=== PATIENT | female | born 1940 | race Asian ===

== ENCOUNTER 2017-10-16 14:12 | Inpatient (IN) | payer MEDICAID, MEDICARE ==
[~2017-10-16] VITALS: Ht 160 cm; Wt 49.0 kg
[2017-10-16 14:19] VITALS: BP_SYST 144
--- NOTE | 2017-10-16 14:26 | NUR ---
Pt placed to ER bed 08. Report given to EVIE Clayton.
[2017-10-16] MEDS ORDERED: NACL 0.9% 1,000 ML IV ONE (14:45)
--- NOTE | 2017-10-16 15:00 | NUR ---
Dr. Constantino at bedside for assess/eval
--- NOTE | 2017-10-16 15:05 | NUR ---
76 year old female presented to ED with complaints of Abdominal pain x 1 month, with nausea and diarrhea x 2 days.
--- NOTE | 2017-10-16 15:10 | NUR ---
22g LAC by EVIE Turner; good blood return noted; blood drawn for lab and sent; IV hydration started as ordered Addendum: 10/16/17 at 1524 by SDEDPM BC x 2 drawn as well as lactic acid
--- NOTE | 2017-10-16 15:15 | NUR ---
EKG performed at bedside; pt zahra
[2017-10-16 15:17] LABS: BASOPHILS % (AUTO) 0.6 % (0.0-2.0); EOSINOPHILS % (AUTO) 0.2 % (0.0-4.0); HEMATOCRIT 36.3 % (36-48); HEMOGLOBIN 12.5 g/dL (12.0-16.0); LYMPHOCYTES # (AUTO) 0.9 K/uL (1.0-5.5); MEAN CORPUSCULAR HEMOGLOBIN 31 pg (27-31); MEAN CORPUSCULAR HGB CONC 35 % (32-36); MEAN CORPUSCULAR VOLUME 89 fL (79.0-98.0); MONOCYTES # (AUTO) 0.3 K/uL (0.0-1.0); MONOCYTES % (AUTO) 9.1 % (1.7-9.3); NEUTROPHILS # (AUTO) 2.3 K/uL (1.8-7.7); NEUTROPHILS % (AUTO) 65.1 % (40.0-70.0); PLATELET COUNT (AUTO) 270 K/uL (130-430); RED BLOOD CELL COUNT(AUTO) 4.06 MIL/uL (4.2-6.2); RED CELL DISTRIBUTION WIDTH 11.7 % (9.0-15.0); WHITE BLOOD COUNT (AUTO) 3.5 K/uL (4.8-10.8)
--- NOTE | 2017-10-16 15:19 | NUR ---
CXR performed at bedside; pt zahra
[2017-10-16 15:23] LABS: ANION GAP 8 (5-15); CALCIUM 9.1 mg/dL (8.4-11.0); CHLORIDE 90 mmol/L (98-107); CREATININE 0.81 mg/dL (0.55-1.30); GLUCOSE 103 mg/dL (70-99); POTASSIUM 3.4 mmol/L (3.5-5.1); SODIUM SERUM 123 mmol/L (136-145); UREA NITROGEN, BLOOD 11 mg/dL (8-21)
[2017-10-16 15:26] LABS: PROTHROMBIN TIME 9.9 SECS (9.5-12.5)
--- NOTE | 2017-10-16 15:30 | NUR ---
Urine sample collected and sent to lab as ordered
[2017-10-16 15:39] LABS: ALANINE AMINOTRANSFERASE 22 U/L (12-78); ALBUMIN 3.7 g/dL (3.4-4.8); ASPARTATE AMINOTRANSFERASE 28 U/L (10-37); TOTAL BILIRUBIN 0.7 mg/dL (0.0-1.0)
[2017-10-16 15:52] LABS: BILIRUBIN,URINE NEGATIVE (NEGATIVE); BLOOD, URINE NEGATIVE (NEGATIVE); CLARITY/URINE CLEAR (CLEAR); COLOR,URINE YELLOW (YELLOW); GLUCOSE,URINE NEGATIVE (NEGATIVE); KETONES,URINE TRACE (NEGATIVE); LEUKOCYTE ESTERASE ,URINE TRACE (NEGATIVE); NITRITE, URINE NEGATIVE (NEGATIVE); PH,URINE 7.5 (5.0-8.0); PROTEIN URINE NEGATIVE (NEGATIVE); UROBILINOGEN,URINE 0.2 (0.2-1.0)
[2017-10-16 15:56] LABS: BACTERIA,URINE FEW /HPF (None Seen); RBC,URINE 0-3 /HPF (0-3); WBC,URINE 0-3 /HPF (0-3)
[2017-10-16] MEDS ORDERED: LORazepam 2 MG/ML VIAL (FOR ER USE) IVP ONE (16:00)
--- NOTE | 2017-10-16 16:09 | NUR ---
pt/family reports feeling anxious wtih shortness of breath; made aware; placed pt on 2L O2 via NC; ordered to give Ativan 1mg IVP; VSS BP 135/75 P81 R 20 O2sat 100%; will reassess and continue to monitor
--- NOTE | 2017-10-16 16:15 | NUR ---
pt requested bedpan; offered and will continue to monitor
--- NOTE | 2017-10-16 16:18 | NUR ---
pt reports feeling better; repeat BP 138/76 P79 R16 O2sat 100%
--- NOTE | 2017-10-16 16:40 | NUR ---
pt off unit via gurney to Radiology in stable condition
--- NOTE | 2017-10-16 16:51 | NUR ---
pt returned to unit via gurney from Radiology in stable condition
[2017-10-16] MEDS ORDERED: AMLO2.5T2 PO (16:53)
[2017-10-16] MEDS ORDERED: ATEN50TA PO (16:53)
[2017-10-16] MEDS ORDERED: LISI40TA4 PO (16:53)
--- NOTE | 2017-10-16 16:54 | NUR ---
medication reconciliation and pt belongings completed with family
--- NOTE | 2017-10-16 16:58 | NUR ---
Lactic #2 being drawn at bedside; pt zahra
--- NOTE | 2017-10-16 17:09 | NUR ---
ADMISSION NOTE Received patient from ER via tameka, received report from JUNE RN. Patient admitted with diagnosis of HYPONATREMIA. Patient oriented to hospital routine, call light, toileting and safety-patient verbalized understanding. Addendum: 10/16/17 at 1749 by Marta Teixeira RN Dietary department informed patient is vegetarian, lactose intolerance.
--- NOTE | 2017-10-16 17:15 | NUR ---
Patient will be admitted to care of Dr. Gamino. Admitted to Tele unit. Will go to room 117A . Belongings list completed and medication reconcilliation completed with family. Summary report printed. Report given at bedside to EVIE Lozano; family at bedside.
[2017-10-16 17:23] VITALS: BP_SYST 135
--- NOTE | 2017-10-16 17:30 | NUR ---
INITIAL NOTES: Initial assessment done. Son at bedside interpreted in cantonese and understands the instructions. Call light with in reach. Bed locked at lowest position. Bed alarm on. Continue to monitor.
[2017-10-16 17:33] VITALS: BP_SYST 135
--- NOTE | 2017-10-16 17:33 | NUR ---
GI consult called: for Dr. Jha (Bland rat poisoner), regarding acute colitis, ordered by Dr. Lynn, spoke with Sepideh
[2017-10-16] MEDS: KCL 20 mEq in D5NS 1000 mL 1,000 ML IV SCH (17:35)
[2017-10-16] MEDS ORDERED: MORPHINE 2 MG/ML INJ. SYRINGE IVP PRN (17:45)
[2017-10-16] MEDS ORDERED: AMOX500C2 PO (17:56)
--- NOTE | 2017-10-16 18:33 | NUR ---
CLOSING NOTES: STABLE. SON AT THE BEDSIDE. DINNER SERVED,VEGAN,LACTOSE INTOLERANCE. CALL LIGHT WITH IN REACH. BED LOCKED AT LOWEST POSITION. BED ALARM ON.
--- NOTE | 2017-10-16 19:30 | NUR ---
PM ASSESSMENT REPORT RECEIVED FROM AM RN. PT RECEIVED IN BED WITH EYES OPEN, AAOX4. PT STATES SHE SPEAKS ONLY LITTLE ICELANDIC BUT IS ABLE TO VERBALIZE NEEDS. PT ON RA. SR ON MONITOR. LAC 22G INFUSING D5 1/2 NS WITH 20 MEQ KCL @ 75 CC/HR. VSS, NO S/S OF DISTRESS NOTED. PT DENIES ANY PAIN AT THIS TIME. HOB ELEVATED, BED IN LOWEST POSITION, CALL LIGHT IN REACH. WILL CONTINUE TO MONITOR.
[2017-10-16 20:00] VITALS: BP_SYST 133
[2017-10-16] MEDS ORDERED: metroNIDAZOLE 500 mg/NS 200 ML IV ONE (21:36)
[2017-10-16] MEDS: metroNIDAZOLE 500 mg/NS 100 ML IV SCH (21:48)
[2017-10-16] MEDS: ENOXAPARIN SODIUM 40 MG/0.4 ML SYRINGE SUBCUT SCH (21:50)
--- NOTE | 2017-10-16 22:00 | NUR ---
RN ROUNDS PT RESTING COMFORTABLY IN BED WITH EYES OPEN. FAMILY AT BEDSIDE AND ALL QUESTIONS AND CONCERNS ANSWERED. BREATHING IS EVEN AND UNLABORED ON RA. NO S/S OF DISTRESS NOTED. PT DENIES ANY PAIN AT THIS TIME. NO OTHER NEEDS VERBALIZED. WILL CONTINUE TO MONITOR PT.
--- NOTE | 2017-10-16 22:03 | NUR ---
BLOOD PRESSURE MEDICATIONS PATIENT'S SON, TRANSLATED AND DISCUSSED THE DOSAGE THAT THE PATIENT IS HAVING FOR HER HOME MEDICATIONS AND CONFIRMED THAT THE PATIENT IS TAKING 2.5MG AMLODIPINE PO DAILY, AND 25MG ATENOLOL PO DAILY. NOTED, AND WILL MAKE THE MD AWARE.
--- NOTE | 2017-10-16 22:44 | NUR ---
PERSONAL BELONGINGS ADJUSTMENT DONE PATIENT'S FAMILY BROUGHT TABLET AND WATER AEROBICS INSTRUCTOR FOR THE PATIENT, NOTED ON THE PERSONAL BELONGINGS ADJUSTMENT.
--- NOTE | 2017-10-17 00:10 | NUR ---
RN ROUNDS PT RESTING COMFORTABLY IN BED, BREATHING IS EVEN AND UNLABORED ON RA. NO S/S OF DISTRESS NOTED. PT EDUCATED ON BECOMING NPO AT 0000 DUE TO PT HAVING AN ABD US TOMORROW MORNING. PT VERBALIZES UNDERSTANDING. WILL CONTINUE TO MONITOR PT.
[2017-10-17 00:30] VITALS: BP_SYST 137
--- NOTE | 2017-10-17 02:11 | NUR ---
RN ROUNDS PT RESTING COMFORTABLY IN BED WITH EYES CLOSED. NO S/S OF DISTRESS NOTED. BREATHING IS EVEN AND UNLABORED ON RA. WILL CONTINUE TO MONITOR PT.
--- NOTE | 2017-10-17 04:00 | NUR ---
RN ROUNDS PT RESTING COMFORTABLY IN BED WITH EYES CLOSED. BREATHING IS EVEN AND UNLABORED ON RA. NO S/S OF DISTRESS NOTED. WILL CONTINUE TO MONITOR PT.
[2017-10-17] MEDS: KCL 20 mEq in D5NS 1000 mL 1,000 ML IV SCH ×2 (05:37→21:02)
[2017-10-17] MEDS: metroNIDAZOLE 500 mg/NS 100 ML IV SCH ×3 (05:40→21:02)
--- NOTE | 2017-10-17 06:32 | NUR ---
CLOSING NOTES PT RESTING COMFORTABLY IN BED WITH EYES OPEN. BREATHING IS EVEN AND UNLABORED. NO S/S OF DISTRESS NOTED. PT DENIES ANY PAIN AT THIS TIME. MORNING MEDICATIONS GIVEN AND PT EDUCATED ON PURPOSE/SIDE EFFECTS. IV SITE PATENT AND INTACT. PT DOES NOT VERBALIZE ANY OTHER NEEDS AT THIS TIME. WILL CONTINUE TO MONITOR PT AND ENDORSE ALL CARE TO AM RN.
--- NOTE | 2017-10-17 07:30 | NUR ---
OPENING NOTE PATIENT VISITED BY DR WELLER, USED [employer] FOR TRANSLATION TO ASSESS AND EXPLAIN PLAN OF CARE TO PATIENT. PATIENT VERBALIZED UNDERSTANDING, NO DISTRESS. REPORTS DECREASED PAIN TODAY AND NOT DIARRHEA SINCE ADMIT.
[2017-10-17 08:00] VITALS: BP_SYST 148
--- NOTE | 2017-10-17 08:30 | NUR ---
ABDOMINAL ULTRASOUND AT BEDSIDE
[2017-10-17] MEDS: amLODIPine BESYLATE 5 MG TABLET PO SCH (09:29)
[2017-10-17] MEDS: LISINOPRIL 20 MG TABLET PO SCH (09:30)
[2017-10-17] MEDS: ATENOLOL 50 MG TABLET (TENORMIN) PO SCH (09:30)
[2017-10-17] MEDS: LEVOFLOXACIN 500 MG/D5W 100 ML IV SCH (09:33)
[2017-10-17 12:00] VITALS: BP_SYST 105
[2017-10-17 12:25] VITALS: BP_SYST 151
--- NOTE | 2017-10-17 12:25 | NUR ---
FAMILY AT BEDSIDE.
--- NOTE | 2017-10-17 15:30 | NUR ---
HIDA SCAN FAMILY AT BEDSIDE. EXPLAINED ALL PROCEDURES AND PLANS FOR PATIENT. FAMILY EXPLAINED PLANS TO PATIENT. PATIENT CONSENTS TO HIDA SCAN IN AM. PER DR WELLER, PATIENT SHOULD HAVE FOLLOW UP COLONOSCOPY AN OUTPATIENT.
[2017-10-17 16:25] VITALS: BP_SYST 147
--- NOTE | 2017-10-17 19:30 | NUR ---
INITIAL NOTES RECEIVED PATIENT ON BED AWAKE AND RESTING, ON HIGH HEARD'S POSITION, BREATHING EVEN AND UNLABORED, MAINTAINED POSITION OF COMFORT AND SAFETY, NO PAIN NOTED, EXPLAINED THE PLAN OF CARE AND STATED UNDERSTANDING, WITH IVF INFUSING WELL, WILL CONTINUE TO MONITOR CALL LIGHT WITHIN REACH.
[2017-10-17 20:00] VITALS: BP_SYST 156
[2017-10-17] MEDS: ENOXAPARIN SODIUM 40 MG/0.4 ML SYRINGE SUBCUT SCH (21:04)
--- NOTE | 2017-10-17 22:30 | NUR ---
RN ROUNDS PATIENT ON BED AWAKE AND RESTING WATCHING ON HER TABLED, NO SOB NOTED, ON STABLE CONDITION, WILL CONTINUE TO MONITOR CALL LIGHT WITHIN REACH.
--- NOTE | 2017-10-18 | NUR ---
NPO PATIENT AWAKE AND RESTING, KEPT PATIENT NPO, ON STABLE CONDITION, KEPT COMFORTABLE, WILL CONTINUE TO MONITOR CALL LIGHT WITHIN REACH.
[2017-10-18 00:16] VITALS: BP_SYST 141
--- NOTE | 2017-10-18 02:07 | NUR ---
RN ROUNDS PATIENT ON BED SLEEPING AND RESTING ON STABLE CONDITION, NO PAIN NOTED WILL CONTINUE TO MONITOR CALL LIGHT WITHIN REACH.
--- NOTE | 2017-10-18 04:22 | NUR ---
RN ROUNDS PATIENT ON BED SLEEPING AND RESTING, ON STABLE CONDITION, NO SIGNS OF DISTRESS NOTED, SAFETY MAINTAINED WILL CONTINUE TO MONITOR IRVIN LIGHT WITHIN REACH.
[2017-10-18] MEDS: metroNIDAZOLE 500 mg/NS 100 ML IV SCH ×3 (05:35→22:04)
--- NOTE | 2017-10-18 06:38 | NUR ---
CLOSING NOTES PATIENT ON BED AWAKE AND RESTING BREATHING EVEN AND UNLABORED, NO PAIN NOTED, KEPT PATIENT NPO POST MIDNIGHT TOLERATING WELL. PATIENT ON STABLE CONDITION. IVF INFUSING WELL, SAFETY MAINTAINED WILL CONTINUE TO MONITOR CALL LIGHT WITHIN REACH.
[2017-10-18 07:05] LABS: BASOPHILS % (AUTO) 0.9 % (0.0-2.0); EOSINOPHILS % (AUTO) 0.5 % (0.0-4.0); HEMATOCRIT 35.2 % (36-48); HEMOGLOBIN 12.2 g/dL (12.0-16.0); LYMPHOCYTES # (AUTO) 1.3 K/uL (1.0-5.5); LYMPHOCYTES % (AUTO) 38.8 % (20.5-51.5); MEAN CORPUSCULAR HEMOGLOBIN 31 pg (27-31); MEAN CORPUSCULAR HGB CONC 35 % (32-36); MEAN CORPUSCULAR VOLUME 89 fL (79.0-98.0); MONOCYTES # (AUTO) 0.4 K/uL (0.0-1.0); MONOCYTES % (AUTO) 12.3 % (1.7-9.3); NEUTROPHILS # (AUTO) 1.7 K/uL (1.8-7.7); NEUTROPHILS % (AUTO) 47.5 % (40.0-70.0); PLATELET COUNT (AUTO) 253 K/uL (130-430); RED BLOOD CELL COUNT(AUTO) 3.93 MIL/uL (4.2-6.2); RED CELL DISTRIBUTION WIDTH 11.8 % (9.0-15.0); WHITE BLOOD COUNT (AUTO) 3.4 K/uL (4.8-10.8)
[2017-10-18 07:12] LABS: ANION GAP 10 (5-15); CALCIUM 8.4 mg/dL (8.4-11.0); CHLORIDE 102 mmol/L (98-107); GLUCOSE 82 mg/dL (70-99); POTASSIUM 3.4 mmol/L (3.5-5.1); SODIUM SERUM 137 mmol/L (136-145)
--- NOTE | 2017-10-18 07:30 | NUR ---
OPENING NOTE PATIENT IS AWAKE ALERT, ASSISTED TO RESTROOM, ASSISTED WITH HYGIENE, CHANGE OF CLOTHES.
[2017-10-18 08:00] VITALS: BP_SYST 145
[2017-10-18] MEDS: LEVOFLOXACIN 500 MG/D5W 100 ML IV SCH (09:00)
--- NOTE | 2017-10-18 09:19 | NUR ---
PATIENT TAKEN TO NUCLEAR MEDICINE FOR HIDA SCAN
[2017-10-18 10:41] LABS: UREA NITROGEN, BLOOD 10 mg/dL (8-21)
--- NOTE | 2017-10-18 11:52 | NUR ---
patient returned from nuclear medicine. remains npo until tech can determine whether or not images are good.
[2017-10-18 12:00] VITALS: BP_SYST 135
[2017-10-18] MEDS: ATENOLOL 50 MG TABLET (TENORMIN) PO SCH (12:54)
[2017-10-18] MEDS: LISINOPRIL 20 MG TABLET PO SCH (12:54)
[2017-10-18] MEDS: amLODIPine BESYLATE 5 MG TABLET PO SCH (12:55)
--- NOTE | 2017-10-18 13:30 | NUR ---
Dietitian Recommendations *Recommend continuing full liquid diet per MD orders. *Recommend advance diet when medically appropriate. Please see Nutritional Assessment for details. JOSEPH RINALDI
--- NOTE | 2017-10-18 16:23 | NUR ---
ASSISTED PATIENT TO COMMODE, APPROX 400ML OF URINE IN COMMODE. PATIENT GIVEN EAR PLUGS AND EYE MASK SHE HAS STATED SHE IS UNABLE TO REST DUE TO THE ROOMMATE TALKING ON THE PHONE ALL OF THE TIME.
[2017-10-18 16:28] VITALS: BP_SYST 157
[2017-10-18] MEDS ORDERED: POTASSIUM CHLORIDE 20 MEQ/PKT PACKET PO ONE (16:45)
[2017-10-18] MEDS: KCL 20 mEq in 0.45% NS 1000 mL 1,000 ML IV SCH (18:09)
--- NOTE | 2017-10-18 19:36 | NUR ---
Initial note: Received handoff report from dayshift RN. Patient is awake in bed eating dinner, no signs or symptoms of acute distress noted. Patient tolerating room air at this time. IV noted to patient's left AC, site is patent and benign. IV fluids infusing well. Safety and fall precautions in place. Bedside commode in place. Call light is with patient. Will continue with plan of care.
[2017-10-18 20:19] VITALS: BP_SYST 131
[2017-10-18] MEDS: ENOXAPARIN SODIUM 40 MG/0.4 ML SYRINGE SUBCUT SCH (20:23)
--- NOTE | 2017-10-18 21:43 | NUR ---
Rounds: Patient is awake in bed, no signs or symptoms of acute distress noted. Family is at bedside. Safety and fall precautions in place. Will continue monitoring.
[2017-10-19 00:12] VITALS: BP_SYST 136
[2017-10-19] MEDS: ONDANSETRON HCL 4 MG/2 ML VIAL IVP PRN ×2 (01:46→21:58)
--- NOTE | 2017-10-19 01:46 | NUR ---
Nausea medication: Patient complained of nausea. Offered Zofran IV push to patient. Education provided regarding indications and side effects of medication, patient verbalized understanding. Administered medication intravenously per MD order, patient tolerated well. Will monitor for side effects.
--- NOTE | 2017-10-19 03:45 | NUR ---
Rounds: Patient is sleeping in bed, no signs or symptoms of acute distress noted. IV fluids infusing well. Safety and fall precautions in place. Call light is with patient. Will continue monitoring.
[2017-10-19] MEDS: metroNIDAZOLE 500 mg/NS 100 ML IV SCH ×3 (05:14→21:01)
--- NOTE | 2017-10-19 06:00 | NUR ---
Closing note: Patient is sleeping, no signs or symptoms of acute distress noted. IV fluids infusing well to patient's left AC. Bedside commode remains in place. All needs met and attended to. Call light is with patient. Safety and fall precautions observed throughout shift. Will endorse care to dayshift RN.
[2017-10-19] MEDS: KCL 20 mEq in 0.45% NS 1000 mL 1,000 ML IV SCH ×2 (06:16→23:39)
[2017-10-19 08:00] VITALS: BP_SYST 145
--- NOTE | 2017-10-19 08:00 | NUR ---
Note Pt resting in bed and has IVF's infusing well through left AC IV site. No SOB/resp distress or pain/discomfort noted at this time. No needs noted. Call light within reach. Pt wants to hold off on eating her breakfast at this time.
[2017-10-19] MEDS: LEVOFLOXACIN 500 MG/D5W 100 ML IV SCH (09:19)
[2017-10-19] MEDS: LISINOPRIL 20 MG TABLET PO SCH (09:20)
[2017-10-19] MEDS: amLODIPine BESYLATE 5 MG TABLET PO SCH (09:20)
[2017-10-19] MEDS: ATENOLOL 50 MG TABLET (TENORMIN) PO SCH (09:20)
[2017-10-19] MEDS ORDERED: LACTULOSE 20 GM/30 ML UDC PO ONE (10:00)
--- NOTE | 2017-10-19 10:00 | NUR ---
Note Dr Jha was at bedside at 0920am speaking to the pt on doing an EGD/Colonoscopy tomorrow. Pt in agreement to do procedure. Questions/concerns were answered. Pt has been assisted to the restroom to have bowel movement. Pt worked with physical therapy at 09am on ambulation and exercises. Pt tolerated ambulation in hallways and back to bed. No needs noted. Call light within reach.
[2017-10-19 12:00] VITALS: BP_SYST 128
--- NOTE | 2017-10-19 12:19 | NUR ---
Discharge Planning note: Home health order received from physician; DCP faxed HH order to [facility] (p. [phone], ). DCP to follow up to confirm that HH received order.
--- NOTE | 2017-10-19 12:20 | NUR ---
Note Pt's bowel regiment started. Pt instructed to use BSC - as bowel movements will come quickly. Pt verbalized understanding. No needs noted. Call light within reach.
[2017-10-19] MEDS: MAG-AL HYDROX/SIMETH 30 ML UDC PO PRN (13:21)
--- NOTE | 2017-10-19 14:40 | NUR ---
Note Pt sitting up in bed with I-pad and head phone. Pt's daughter was at bedside for about 15-30 minutes. Pt has been using the BSC frequently after Lactulose PO was given. No needs noted at this time. IVF's infusing well. Pt has weak gait - able to get OOB independently to BSC. Call light within reach.
[2017-10-19 16:00] VITALS: BP_SYST 131
--- NOTE | 2017-10-19 16:07 | NUR ---
DC Planning: DIPLOMATIC COURIER has spoken [facility] ([phone]) and they can accept pt for home health services; [facility] needs to be notified of pt's DC order.
[2017-10-19] MEDS ORDERED: SORBITOL 70% SOLUTION, 30 ML UDBTL PO ONE (17:00)
[2017-10-19] MEDS ORDERED: BISACODYL 5 MG TABLET.DR (DULCOLAX) PO ONE (17:00)
--- NOTE | 2017-10-19 17:00 | NUR ---
Note Pt has been sitting up in bed working on her I-pad and denies any needs. Pt's family visit in and out in the afternoon. Pt denies any needs at this time. Call light within reach.
--- NOTE | 2017-10-19 18:10 | NUR ---
Note Pt eating her clear liquids dinner at this time. Dulcolax PO tabs and Sorbitol was just given. Pt has been using BSC frequently as Lactulose was given earlier this afternoon. No SOB/resp distress or severe abdominal pain/discomfort noted at this time. Pt's heartburn no longer an issue at this time after Mylanta PO was given this afternoon. Pt was checked on q1 and PRN all shift for care and needs. IV in left AC intact and patent at this time. Tele unit intact and attached all shift. No needs noted. Call light within reach.
[2017-10-19] MEDS: MAGNESIUM CITRATE 300 ML ORAL SOLUTION PO ONE ×2 (19:00→20:24)
--- NOTE | 2017-10-19 19:35 | NUR ---
OPENING NOTE RECEIVED PT AND REPORT FROM DAY SHIFT NURSE. PT IS LAYING AWAKE IN BED. PT ABLE TO VERBALIZE NEEDS. PT DENIES ANY PAIN AT THIS TIME. IV IS INTACT AND RUNNING IVF PER ORDERS. FALL AND SAFETY PRECAUTIONS IN PLACE. BED LOCKED IN LOWEST POSITION. FAMILY AT BEDSIDE. CALL LIGHT WITH PT. WILL CONTINUE TO MONITOR.
[2017-10-19 20:00] VITALS: BP_SYST 144
[2017-10-19] MEDS: PANTOPRAZOLE SODIUM 40 MG/VIAL (PROTONIX) IVP SCH (20:20)
--- NOTE | 2017-10-19 20:20 | NUR ---
MEDICATION/ REFUSAL ADMINISTERED MEDICATION PER ORDERS. MAG CITRATE AND ENULOSE REFUSED DUE TO PATIENT FEELING DIZZY AND HAVING MULTIPLE BOWEL MOVEMENTS THAT APPEAR CLEAR. WILL CONTINUE TO MONITOR.
[2017-10-19] MEDS: ENOXAPARIN SODIUM 40 MG/0.4 ML SYRINGE SUBCUT SCH (20:22)
[2017-10-19] MEDS: LACTULOSE 20 GM/30 ML UDC PO SCH (20:29)
--- NOTE | 2017-10-19 21:01 | NUR ---
IV ABX ADMINISTERED IV ABX PER ORDERS. DAUGHTER AT BEDSIDE. PT ON BED LAMAR. WILL CONTINUE TO MONITOR.
--- NOTE | 2017-10-19 21:58 | NUR ---
ZOFRAN ADMINISTERED PRN ZOFRAN FOR NAUSEA/VOMITING. PT VOMITED 20 ML. WILL CONTINUE TO MONITOR.
--- NOTE | 2017-10-19 23:41 | NUR ---
IVF ADMINISTERED IVF PER ORDERS. PT SLEEPING. NO S/S OF DISTRESS OR DISCOMFORT. WILL CONTINUE TO MONITOR.
[2017-10-20 01:00] VITALS: BP_SYST 123
--- NOTE | 2017-10-20 01:00 | NUR ---
ROUNDING NOTE PT IS SLEEPING AT THIS TIME. DAUGHTER IS AT BEDSIDE. CALL LIGHT WITH PT WILL CONTINUE TO MONITOR.
--- NOTE | 2017-10-20 03:15 | NUR ---
ROUNDING NOTE PT IS SLEEPING. NO S/S OF DISTRESS OR DISCOMFORT. DAUGHTER AT BEDSIDE. WILL CONTINUE TO MONITOR.
[2017-10-20] MEDS: metroNIDAZOLE 500 mg/NS 100 ML IV SCH ×3 (05:00→21:00)
--- NOTE | 2017-10-20 05:00 | NUR ---
IV ABX/ ENEMA REFUSAL ADMINISTERED IV ABX PER ORDER. PT REFUSAL OF ENEMA DESPITE EDUCATION. PT PLACED ON BED LAMAR. WILL CONTINUE TO MONITOR.
--- NOTE | 2017-10-20 05:17 | NUR ---
BOWEL MOVEMENT BOWEL MOVEMENT IS SLIGHTLY DARKER THAN PREVIOUSLY NOTED. COLOR IS BROWN/YELLOW. NO SOLIDS NOTED IN STOOL. STOOL IS COMPLETELY LIQUID. INFORMED FAMILY OF FINDINGS. PT STILL REFUSES ENEMA AT THIS TIME, PREFERS FOR IT TO BE DONE CLOSER TO SCHEDULED TIME OF PROCEDURE.
--- NOTE | 2017-10-20 06:25 | NUR ---
CLOSING NOTE WILL ENDORSE CARE AND REPORT TO DAY SHIFT NURSE. PT IS SLEEPING AT THIS TIME. NO S/S OF DISTRESS OR DISCOMFORT. ALL NEEDS MET THROUGHOUT SHIFT. PT IN STABLE CONDITION. FALL AND SAFETY PRECAUTIONS MAINTAINED DURING SHIFT. DAUGHTER REMAINS AT BEDSIDE. WILL CONTINUE TO MONITOR.
[2017-10-20 06:52] LABS: INR 1.1 (0.8-1.2)
[2017-10-20 07:10] LABS: ANION GAP 8 (5-15); CALCIUM 8.8 mg/dL (8.4-11.0); CHLORIDE 108 mmol/L (98-107); CREATININE 1.05 mg/dL (0.55-1.30); GLUCOSE 104 mg/dL (70-99); POTASSIUM 4.5 mmol/L (3.5-5.1); SODIUM SERUM 140 mmol/L (136-145); UREA NITROGEN, BLOOD 14 mg/dL (8-21)
--- NOTE | 2017-10-20 07:40 | NUR ---
INITIAL NOTE RECEIVED PATIENT FROM IGNITION EXPERT. PATIENT AWAKE IN BED. DAUGHTER AT BEDSIDE FOR TRANSLATION. PATIENT ALERT/ORIENTED. DENIES PAIN AT THIS TIME. ROOM AIR. NO ACUTE DISTRESS. NO SOB. RESPIRATION EVEN AND UNLABORED. SKIN WARM AND DRY TO TOUCH. IV INTACT AND PATENT; RAE IV FLUID ORDERED. BED IN LOW AND LOCKED POSITION. SIDERAIL UP X2. BED ALARM ON. ORIENTED PATIENT AND DAUGHTER TO CALL LIGHT AND TO USE FOR ASSIST; BOTH VERBALIZED UNDERSTANDING. ALL NEEDS MET. CALL LIGHT IN REACH. CONT TO MONITOR.
[2017-10-20 07:49] LABS: BASOPHILS % (AUTO) 0.5 % (0.0-2.0); EOSINOPHILS % (AUTO) 0.1 % (0.0-4.0); HEMATOCRIT 36.3 % (36-48); HEMOGLOBIN 12.5 g/dL (12.0-16.0); LYMPHOCYTES # (AUTO) 1.1 K/uL (1.0-5.5); LYMPHOCYTES % (AUTO) 20.1 % (20.5-51.5); MEAN CORPUSCULAR HEMOGLOBIN 31 pg (27-31); MEAN CORPUSCULAR HGB CONC 34 % (32-36); MEAN CORPUSCULAR VOLUME 91 fL (79.0-98.0); MONOCYTES # (AUTO) 0.4 K/uL (0.0-1.0); NEUTROPHILS # (AUTO) 4.1 K/uL (1.8-7.7); NEUTROPHILS % (AUTO) 71.3 % (40.0-70.0); PLATELET COUNT (AUTO) 262 K/uL (130-430); RED CELL DISTRIBUTION WIDTH 12.3 % (9.0-15.0); WHITE BLOOD COUNT (AUTO) 5.6 K/uL (4.8-10.8)
[2017-10-20 08:13] VITALS: BP_SYST 123
[2017-10-20] MEDS: LEVOFLOXACIN 500 MG/D5W 100 ML IV SCH (08:48)
[2017-10-20] MEDS: PANTOPRAZOLE SODIUM 40 MG/VIAL (PROTONIX) IVP SCH ×2 (08:48→20:03)
--- NOTE | 2017-10-20 08:50 | NUR ---
MEDS IV LEVAQUIN ADMINISTERED ORDERED, RAE WELL. PATIENT REFUSED ENULOSE AND PATIENT IS NPO. WILL ADMINISTER TAP WATER ENEMA LATER WHEN PATIENT IS READY. EXPLAINED PROCEDURE TO DAUGHTER MELVIN AND PATIENT. PATIENT OKAY FOR PROCEDURE LATER.
[2017-10-20] MEDS: LACTULOSE 20 GM/30 ML UDC PO SCH (08:58)
[2017-10-20] MEDS: LISINOPRIL 20 MG TABLET PO SCH (09:00)
[2017-10-20] MEDS: ATENOLOL 50 MG TABLET (TENORMIN) PO SCH (09:00)
[2017-10-20] MEDS: amLODIPine BESYLATE 5 MG TABLET PO SCH (09:00)
[2017-10-20] MEDS: KCL 20 mEq in 0.45% NS 1000 mL 1,000 ML IV SCH ×2 (09:03→18:46)
--- NOTE | 2017-10-20 10:00 | NUR ---
P.T. PATIENT SEEN BY PHYSICAL THERAPY AT BEDSIDE, PATIENT RAE WELL
--- NOTE | 2017-10-20 10:30 | NUR ---
TAP WATER ENEMA EXPLAINED TAP WATER ENEMA PROCEDURE TO DAUGHTER MELVIN AND PATIENT BEFORE RENDERING. ONE LITER OF TAP WATER ADMINISTERED, PATIENT TOLERATED WELL. NO STOOL NOTED; CLEAR LIQUID RETURN WITH A TINGE OF YELLOW NOTED. CARE PROVIDED AND REPOSITIONED PATIENT FOR COMFORT. ALL NEEDS MET. CALL LIGHT IN REACH. CONT TO MONITOR.
--- NOTE | 2017-10-20 11:38 | NUR ---
IV RE-INSERTION: Complaining of pain to IV site. Restarted on RIGHT HAND, 22g. Successful after X1 attempts. IV flushes freely with good blood return. Patient zahra well. Resumed current IVF. Will observe for any signs of infiltration.
[2017-10-20] MEDS: MIDAZOLAM HCL 5 MG/5 ML VIAL ONE ×4 (11:49→13:20)
[2017-10-20] MEDS: MEPERIDINE HCL/PF 25 MG/ML DISP.SYRIN ONE ×4 (11:50→13:18)
[2017-10-20] MEDS ORDERED: SIMETHICONE 40 MG/0.6 ML ML ONE ×2 (11:53→12:00)
[2017-10-20 12:00] VITALS: BP_SYST 141
--- NOTE | 2017-10-20 12:01 | NUR ---
BSC ASSISTED PATIENT TO BEDSIDE COMMODE. PATIENT HAD NO STOOL, IT WAS CLEAR LIQUID WITH TINGE OF YELLOW. ALL NEEDS MET. CONT TO MONITOR. CALL LIGHT IN REACH
--- NOTE | 2017-10-20 12:20 | NUR ---
GI Patient taken to GI for colonoscopy and EGD. Patient vital sign stable and denies any discomfort at this time. Transferred via wheelchair. All needs met. Call light in reach. Cont to monitor
--- NOTE | 2017-10-20 13:15 | NUR ---
PHYSICAL THERAPY CO-SIGN The Physical Therapy Progress Notes documented by Behavior Interventionist have been reviewed. I concur with the documentation of this PROMOS EXECUTIVE PRODUCER. Plan: continue PT as per plan of care if she remains in this hospital. Reviewed/Co-Signed by: Keshia Winston, PT Documentation Done by: Nura Gurrola, PROMOS EXECUTIVE PRODUCER Addendum: 10/20/17 at 1430 by Keshia Winston PT Amended: Links added.
--- NOTE | 2017-10-20 14:12 | NUR ---
DR.ARORA JOHNSON AT NURSES STATION. ORDERED CLEAR LIQUID FOR PATIENT WHEN PATIENT RETURNS TO UNIT; ORDER CLARIFIED AND VERIFIED AND CARRIED OUT.
--- NOTE | 2017-10-20 14:30 | NUR ---
on unit/EGD Patient returned from GI. Report received from Kami CASE; 3 biopsy was taken (duodenum, antrum, clotest) and patient was diagnosed for gastritis, duodenitis and hemorrhoid. Patient is stable. Vital sign: BP 137/74, HR 64, RR 18, TEMP 97.2, SpO2@98% ON ROOM AIR. No acute distress. No SOB. Patient denies pain, but has a little discomfort from procedure but is manageable. Repositioned for comfort. Linen and gown was changed. All needs met. Call light in reach. Cont to monitor.
[2017-10-20 15:49] VITALS: BP_SYST 128
--- NOTE | 2017-10-20 16:45 | NUR ---
Notes Patient laying in bed on cell phone. Vital sign stable. No acute distress. All needs met. Call light in reach. Cont to monitor. Call light in reach.
--- NOTE | 2017-10-20 18:36 | NUR ---
CLOSING NOTE PATIENT AWAKE IN BED. DENIES PAIN. NO ACUTE DISTRESS. NO SOB. RESPIRATION EVEN AND UNLABORED. SKIN WARM AND DRY TO TOUCH. IV TO RIGHT HAND INTACT AND PATENT WITH NO S/SX INFECTION/INFILTRATION NOTED. ALL NEEDS MET. CALL LIGHT IN REACH. CONT TO MONITOR. CALL LIGHT IN REACH. WILL ENDORSE TO ONCOMING SHIFT.
[2017-10-20 19:15] VITALS: BP_SYST 154
--- NOTE | 2017-10-20 19:15 | NUR ---
Initial Notes Received patient in bed with son at bedside. Patient is awake alert oriented x 4. No s/s of any distress and no c/o pain noted. IV noted to r hand G 22 no infiltrate and with good blood return. BUE are strong, and mild weakness to BLE, needs assistance to bedside commode. Discuss plan of care with patient and verbalize understanding. Call light in reach, will cont to monitor.
[2017-10-20] MEDS: ENOXAPARIN SODIUM 40 MG/0.4 ML SYRINGE SUBCUT SCH (20:06)
--- NOTE | 2017-10-20 21:15 | NUR ---
Rounds Assisted patient to commode and safely back to bed. No s/s of any distress, no c/o pain noted.Call light in reach, will cont to monitor.
--- NOTE | 2017-10-20 23:15 | NUR ---
Rounds Patient is resting at this time with daughter at bedside. No s/s of any distress, no c/o pain noted.Call light in reach, will cont to monitor.
[2017-10-21] MEDS: ONDANSETRON HCL 4 MG/2 ML VIAL IVP PRN ×2 (00:07→09:21)
--- NOTE | 2017-10-21 00:30 | NUR ---
Dizzy and Nauseated Patient c/o of dizziness and nausea. All v/s are wnl. Admin Zofran IV as ordered. Daughter at bedside. Will continue to monitor.
[2017-10-21 00:34] VITALS: BP_SYST 141
--- NOTE | 2017-10-21 02:30 | NUR ---
Rounds Patient is resting at this time. No c/o pain and no s/s of any distress noted. Call light in reach,will cont to monitor.
--- NOTE | 2017-10-21 05:30 | NUR ---
Rounds Patient is resting at this time. No s/s of any distress noted. Call light in reach, will cont to monitor
[2017-10-21] MEDS: metroNIDAZOLE 500 mg/NS 100 ML IV SCH (05:50)
--- NOTE | 2017-10-21 06:31 | NUR ---
Spoke with Dr Lynn Notified Dr Lynn that patient c/o dizziness and nauseous every time patient gets up from bed. No order given at this time.
--- NOTE | 2017-10-21 06:54 | NUR ---
End of shift notes Patient is resting in bed at this time. No c/o pain and no s/s of any distress noted. Call light in reach, side rails up x2 and bed alarm on for safety. Will endorse to incoming nurse.
--- NOTE | 2017-10-21 07:54 | NUR ---
INITIAL NOTE PT SITTING UP IN BED, VSS, AAO X3, LITTLW HUNGARIAN, PRIMARILY CANTONESE SPEAKING BUT ABLE TO MAKE NEEDS KNOWN. PT C/O DIZZY DUE TO NOT EATING ENOUGH AND NAUSEA WHEN SHE DOES EAT, PER NOC SHIFT, DR BRIONES AWARE. PLAN OF CARE DISCUSSED WITH PATIENT, PT VERBALIZED UNDERSTANDING, SAFETY PRECAUTIONS IN PLACE CALL LIGHT WITHIN REACH, WILL FOLLOW UP
[2017-10-21 08:17] VITALS: BP_SYST 142
--- NOTE | 2017-10-21 08:45 | NUR ---
PHYSICAL THERAPY PT UP WITH PT, ABLE TO WALK DOWN [address] AND BACK, NO C/O NAUSEA OR DIZZY, JUST STATES SHE FEELS WEAK
[2017-10-21] MEDS: PANTOPRAZOLE SODIUM 40 MG/VIAL (PROTONIX) IVP SCH (08:48)
[2017-10-21] MEDS: LISINOPRIL 20 MG TABLET PO SCH (08:48)
[2017-10-21] MEDS: ATENOLOL 50 MG TABLET (TENORMIN) PO SCH (08:49)
[2017-10-21] MEDS: amLODIPine BESYLATE 5 MG TABLET PO SCH (08:49)
--- NOTE | 2017-10-21 10:45 | NUR ---
SPOKE DAUGHTER MAY, ON PHONE AT BEDSIDE, ABLE TO TRANSLATE WHAT PT IS FEELING. PT STATES SHE FEELS GAS, BURPING A LOT, BLOATED, INCREASES FEELING OF NAUSEA REQUESTING SOMETHING TO HELP WITH THE GAS. PT HAS GRACE ORDERED QID, PT EDUCATED REGARDING MEDICATION AND PROVIDED MEDICATION. WILL FOLLOW UP
[2017-10-21 11:04] VITALS: BP_SYST 147
[2017-10-21] MEDS: MAG-AL HYDROX/SIMETH 30 ML UDC PO PRN (11:12)
--- NOTE | 2017-10-21 11:15 | NUR ---
SON AT BEDSIDE, PT REQUESTING TO GET UP AND WALK TO HELP WITH GAS/BLOATING. PT ENCOURAGED TO WALK WITH ASSISTANCE, WHETHER IT BE WITH HER SON AT HER SIDE OR IF SHE WISHES TO WAIT FOR THE CIVIL SERVICE CLERK BEVERAGE STEWARD TO ASSIST HER DUE TO PT COMPLAINT OF FEELING WEAK/ DIZZY. PT VERBALIZED UNDERSTANDING. WILL FOLLOW UP
--- NOTE | 2017-10-21 13:08 | NUR ---
ROUNDS PT SITTING UP IN BED, TALKING WITH DAUGHTER MAY ON THE PHONE. DAUGHTER UPDATED ON PT STATUS, WHILE ON PHONE WITH DAUGHTER PT STARTS DRY HEAVING, STATES THAT NOTHING COMES OUT BUT SHE JUST FEELS NAUSEAS. PT ENCOURAGED TO LAY THE HEAD OF THE DOWN, GET OFF PHONE AND TO TRY AND REST. PT HAS NOT BEEN RESTING WELL DURING HER HOSPITAL STAY AND ON CLEAR DIET, FEELS WEAK AND TIRED. PT ENCOURAGED TO REST, EMESIS BASIN AT BEDSIDE, WILL CONTINUE TO MONITOR PT CLOSELY
[2017-10-21] MEDS: KCL 20 mEq in 0.45% NS 1000 mL 1,000 ML IV SCH (13:20)
--- NOTE | 2017-10-21 14:59 | NUR ---
ROUNDS PT SITTING UP IN BED, PREVIOUSLY WALKED IN TO ROOM AND PT WAS LAYING TO SIDE RESTING, EYES CLOSED. PT STATES SHE WAS ABLE TO REST, FEELS A LITTLE BETTER, DRINKING SMALL SIPS OF 7UP, BURPING BUT TOLERATING. PT ASSISTED TO BEDPAN PER REQUEST. CLEANSED, CALL LIGHT PLACED, WITHIN REACH, WILL FOLLOW UP
[2017-10-21 15:04] VITALS: BP_SYST 138
--- NOTE | 2017-10-21 15:40 | NUR ---
DC Planning: faxed referral inquiry to Lyle/intake at [facility] faxed # [phone], tel #[phone]. Addendum: 10/21/17 at 1602 by Vic Wiggins RN >> Per Lyle, the pt. is accepted and confirmed visiting nurse to see the pt. tomorrow. -- EVIE Hawk made aware.
--- NOTE | 2017-10-21 15:41 | NUR ---
DR BRIONES MAKING ROUNDS, UPDATED ON PATIENT STATUS. WILL NOTE AND CARRY OUT ANY NEW ORDERS
--- NOTE | 2017-10-21 15:41 | NUR ---
Nutrition F/U Admitting Diagnosis Hyponatremia Reviewed Pertinent Medical/Surgical Hx Medical Record Patient Primary RN Medical History Comment: Pt found w/: Acute colitis, hyponatremia, HTN, DJD per MD notes. Per GI Consultation notes: dehydration, acute gastroenteritis, cholelithiasis. Per GI MD notes 10/21/17: EGD/colonoscopy showed mild gastritis, duodenitis, hemorrhoids Subjective Information Pt seen resting in bed. Pt speaks limited Turkmen. Pt's lunch tray was visible at bedside; less than 50% eaten. Per Rn, pt has been having nausea and dry heaves. Per EMR, emesis: 20 ml 10/20/17; abd is soft and non-distended w/ active bowel sounds; I/O: 300/0 (+300 ml) per 12 hours. Current Diet Order/Nutrition Support Full liquid x0 days Patient/Significant Other Able To Verbalize Education Provided Not Indicated Pertinent Medications protonix IV, mylanta, KCl/NaCl IV, zofran Pertinent Labs K 4.5 WNL (improved), BUN 14 WNL (improved), Hct 36.3 WNL (improved), WBC 5.6 WNL (improved), BG 104 H Height (Feet) 5 feet Height (Inches) 3.00 inches Weight (Pounds) 108 pounds (10/18/17) Weight (Calculated Kilograms) 48.942387 kilograms Patient Weight 48.988 kg Body Mass Index 19.13 kg/m2 %IBW 94 [place]/Adjusted Body Weight 115 lb, 52 kg Recent Weight Change Yes - 2-3 lbs per EMR Weight Status Appropriate Gastrointestinal Symptoms Nausea Last BM 10/21/17 Food Allergies Yes - lactose, milk products and Ensure Usual Diet At Home regular vegan diet per RN Skin Integrity Comment: Dennis scale: 20; no skin issues noted. Current % PO Poor -- 23% average x5 meals Estimated Energy Expenditure (kcals/day) 1175-7377 kcal/day (30-35 kcal/kg CBW for maintenance) Estimated Protein Required (g/day) 59-64 gm/day (1.2-1.3 gm/kg CBW for Geriatric maintenance) Estimated Fluid Required (l/day) 1.2 L/day (25ml/kg CBW for Geriatric maintenance) Problem/Etiology/Signs/Symptoms Altered GI function related to acute gastroenteritis as evidenced by abd pain, diarrhea and poor oral intake for 3 days [employer]. *pt now experiencing nausea Expected Outcomes/Goals - Monitor advancement of diet, pt intake and appetite w/ goal of pt meeting at least 75% of estimated nutritional needs,labs trending WNL, normal GI function, skin integrity/wt maintenance. Dietitian Recommendations * Recommend continuing full liquid diet per MD * Consider advance to soft (low fiber/bland) diet if/when medically appropriate Follow Up Moderate Risk: F/U in 3-5 days
--- NOTE | 2017-10-21 15:48 | NUR ---
Dietitian Recommendations * Recommend continuing full liquid diet per MD * Consider advance to soft (low fiber/bland) diet if/when medically appropriate LP, RD Please refer to Nutrition F/U for details.
[2017-10-21 16:23] VITALS: BP_SYST 138
[2017-10-21] MEDS ORDERED: ONDA4TAB5 PO (16:28)
[2017-10-21] MEDS ORDERED: PRO40 PO (16:28)
--- NOTE | 2017-10-21 17:03 | NUR ---
D/C Patient Patient given medication reconciliation form and D/C instructions. Exit Care provided. Patient verbalized understanding. MD discussed with patient the results and treatment provided. Patient left with moderate assistance to transfer for discharge to home. Patient in stable condition, ID band removed. IV catheter removed, intact and dressing applied, no active bleeding. Rx of protonix and zofran given. Patient educated on pain management. All belongings sent with patient. Patient accompanied out via wheelchair with daughters Neha Finley and son at her side.
--- NOTE | 2017-10-28 11:20 | NUR ---
Discharge Follow Up Phone Call [employer] Specialist phoned patient, , on 10/22/17 and left a voicemail message. Phoned patient's son, Ze, , and left voicemail messages on 10/22/17 and 10/26/17. Phoned daughter, Neha [phone], and left a voicemail message on 10/28/17. Phoned [facility] [phone] on 10/28/17. They have been unable to reach patient and have tried all the contact numbers and left voicemail messages. No other calls will be made.
== END 2017-10-21 17:03 | disposition home health service (06) | DRG 241 ==
LOC: SED 14:12 → STU 16:45
PROVIDERS: ADMIT Family Medicine; ATTEND Family Medicine
PROC: 0DB68ZX Excision of Stomach, Via Natural or Artificial Opening Endoscopic, Diagnostic (ICD-10-PCS; 2017-10-20)
PROC: 0DJD8ZZ Inspection of Lower Intestinal Tract, Via Natural or Artificial Opening Endoscopic (ICD-10-PCS; 2017-10-20)
PROC: 0DB98ZX Excision of Duodenum, Via Natural or Artificial Opening Endoscopic, Diagnostic (ICD-10-PCS; principal; 2017-10-20 13:00)
PROC: 0DB78ZX Excision of Stomach, Pylorus, Via Natural or Artificial Opening Endoscopic, Diagnostic (ICD-10-PCS; 2017-10-20 13:00)
DX: K29.00 Acute gastritis without bleeding (principal); E87.1 Hypo-osmolality and hyponatremia; E86.0 Dehydration; K52.9 Noninfective gastroenteritis and colitis, unspecified; K80.20 Calculus of gallbladder without cholecystitis without obstruction; I10 Essential (primary) hypertension; M81.0 Age-related osteoporosis without current pathological fracture; K29.80 Duodenitis without bleeding; M19.90 Unspecified osteoarthritis, unspecified site; K64.8 Other hemorrhoids; Z88.0 Allergy status to penicillin; Z88.6 Allergy status to analgesic agent; Z79.899 Other long term (current) drug therapy
CPT/HCPCS: 36415; 43239; 45378; 70450-TC; 71045; 74021; 76700-TC; 78226; 80048; 80053; 81000-TC; 82272; 83605; 83735-TC; 84484; 85025; 85610-TC; 85730-TC; 87040-TC; 87081; 87086; 87177; 87230-TC; 88305; 88312; 88313; 89055; 93005; 96360; 97110-GP; 97116-GP; 97530-GP; 99285; A9537; C9113; J1650; J1956; J2060; J2175; J2250; J2270; J2405; J3480; J3490; J7030